=== PATIENT | male | born 1980 | race Caucasian/White ===

== ENCOUNTER → 2016-09-24 | Outpatient (CLI) | payer BC ==
[2012-08-11 11:42] VITALS: BP 153/105
--- NOTE | 2016-09-24 21:41 | RAD ---
History: Chronic low back pain Technique: Three views of the lumbar spine Comparison:NONE Findings: The vertebral bodies demonstrate normal height and alignment. There is no acute fracture, dislocatio n, or subluxation. There is mild DDD and spondylosis at L5-S1. There is mild facet arthrosis at L4-L 5 and L5-S1.. Impression: 1. Mild degenerative changes at the lumbosacral junction. No acute osseous abnormalities are demonst rated. Reported By:
--- NOTE | 2016-09-25 06:44 | RAD ---
2 views of bilateral hips Indication: Bilateral hip pain for 10-2012 years which has worsened Findings: There is advanced osteoarthrosis of the right femoral acetabular joint with collapse of th e right femoral head. The left femoral head demonstrates increase sclerosis suggesting osteonecrosis however there is no subchondral collapse. Femoral acetabular joint space demonstrates mild narrowin g superiorly. Femoral heads remain well position within the acetabulum. Pubic symphysis and SI joint s are intact with mild degenerative change. The moderate spondylosis is noted at L5-S1. No localizin g free fluid within the pelvis. Impression: 1.Advanced right femoral acetabular osteoarthrosis with subchondral collapse of the right femoral he ad. 2. Mild left femoral acetabular osteoarthrosis with subtle increase sclerosis within the femoral hea d suggesting early stage osteonecrosis. No subchondral collapse. 3. Degenerative changes within the visualized lower lumbar spine, bilateral SI joints and pubic symp hysis. Reported By:
== END ==
LOC: RAD 15:22
PROVIDERS: ATTEND Nurse Practitioner Family
DX: I10 Essential (primary) hypertension (principal); M25.551 Pain in right hip; M25.552 Pain in left hip; M54.5 Low back pain
CPT/HCPCS: 72100; 73521

== ENCOUNTER → 2017-03-22 | Outpatient (CLI) | payer BC ==
[2012-08-11 11:42] VITALS: BP 153/105
--- NOTE | 2017-03-25 15:57 | RAD ---
HISTORY: Bilateral hip pain Study: Bilateral hips Technique: Two views of the hips Comparison: None Findings: Images demonstrate severe degenerative changes involving the right femoral head. There is deformity o f the right femoral head. Underlying avascular necrosis cannot be excluded. Correlation with MRI may be helpful as clinically indicated. No evidence of dislocation is appreciated. Mild degenerative juarez ges of the left hip are also noted. The left femoral head is well seated within its acetabulum. Degen erative changes of the sacroiliac joints and pubic symphysis are also demonstrated. Impression: 1. Deformity of the right femoral head with degenerative changes as discussed above. Reported By:
== END | disposition home or self-care (01) | DRG 556 ==
LOC: RAD 08:35
PROVIDERS: ATTEND Specialist
DX: M25.551 Pain in right hip (principal); M25.552 Pain in left hip; M16.0 Bilateral primary osteoarthritis of hip; M21.851 Other specified acquired deformities of right thigh
CPT/HCPCS: 73521